=== PATIENT | male | born 1960 | race Caucasian/White ===

== ENCOUNTER 2020-01-30 21:47 | Emergency (ER) | payer OTHER, SELFPAY ==
[2020-01-30 21:48] VITALS: BP 172/124; PULSE 78; RESP 17; TEMP 36.3; O2SAT 98; BMI 30.3
--- NOTE | 2020-01-30 22:21 | CT_ITS ---
STUDY: CT ABDOMEN AND PELVIS WITHOUT CONTRAST REASON FOR EXAM: Male, 59 years old. Left lower quadrant pain for 2 hours. History of appendectomy. RADIATION DOSAGE (If Supplied By Facility): CTDIvol = ( 14.73 ) mGy, DLP = ( 846.38 ) mGycm TECHNIQUE: Transaxial images were obtained from the dome of the diaphragm to the symphysis pubis without oral contrast, and without intravenous contrast. Sagittal and coronal images were reconstructed. Individualized dose optimization techniques were used for this CT. COMPARISON: None. FINDINGS: The visualized lung bases are unremarkable. The visualized portions of the heart are within normal limits. Normal liver. Normal gallbladder and extrahepatic biliary system. Normal spleen. Normal pancreas. Normal bilateral adrenal glands. Normal right kidney. There is minimal stranding in the right perinephric fat. There is no mass or renal calculi. There is no hydronephrosis. Normal visualized right ureter. The left kidney appears mildly prominent. There is stranding of the perinephric fat. The There is a large upper pole parapelvic cyst. Mild prominence of the left ureter is the urinary bladder without filling defect. Small hiatal hernia. The stomach is otherwise unremarkable. Normal small intestine. There is mild stranding of the small bowel mesentery. Small lymph nodes. There is sigmoid diverticuli without acute inflammatory change. The proximal colon is unremarkable. There is non-visualization of the appendix. There is diffuse atherosclerotic calcification of the abdominal aorta, without a demonstrated aneurysm. Normal inferior vena cava. Normal retroperitoneum. Normal urinary bladder. Enlarged prostate. There are multiple pelvic few phleboliths is nonspecific subcentimeter pelvic lymphadenopathy. No free air or free fluid within the peritoneal cavity. Small supraumbilical hernia of omental fat. The abdominal wall is otherwise grossly normal. There are diffuse degenerative changes of the visualized lumbar spine. CT/Abdomen/Pelvis without Cont IMPRESSION: 1. Is and dating and multiple lymph nodes within the small bowel mesentery. 2. Enteric findings suggestive of panniculitis. 3. Mild stranding of the barium nephric fat without obvious acute renal abnormality. 4. Left parapelvic renal cyst. 5. Sigmoid diverticulosis. 6. Nonspecific subcentimeter pelvic lymphadenopathy. Electronically Signed: Marcio Dailey DO at 23:11 EDT Tel [phone], Service support ,
[2020-01-30] MEDS: Ondansetron 4 MG/2 ML Vial IV (22:28)
[2020-01-30] MEDS: Morphine 4 MG/ML Syringe IV ×2 (22:29→22:54)
[2020-01-30] MEDS: Ketorolac 30 MG/ML Syringe IV (22:29)
[2020-01-30] MEDS: 0.9% Normal Saline 1,000 ML 250 ML IV (22:35)
[2020-01-30 22:38] LABS: Absolute Lymphocyte Count 1.34 X10^3/uL (0.83-4.51); Basophil# 0.08 X10^3/uL; Basophil% 0.8 % (0-1); Eosinophil# 0.03 X10^3/uL; Eosinophils% 0.3 % (0-5); Hematocrit 46.5 % (40-54); Hemoglobin 14.9 g/dL (13.0-16.5); Lymphocyte # 1.34 X10^3/ul (4.0); Lymphocyte % 13.4 % (19-41); Mean Corpuscular Hgb 29.4 pg (27.0-32.0); Mean Corpuscular Volume 91.9 fL (80-94); Mean Platelet Vol. 10.1 fl (6.2-12.0); Monocyte# 0.49 X10^3/uL; Monocyte% 4.9 % (0-10); NRBC Flagged by Analyzer 0 % (0-5); Neutrophil % 80.3 % (47-70); Platelet Count 245 K/mm3 (150-450); RBC Distribution Width CV 12.6 % (11.6-14.6); RBC Distribution Width SD 42.5 fl (35.1-43.9); Red Blood Count 5.06 M/mm3 (4.6-6.2)
[2020-01-30 23:00] LABS: Anion Gap 5 (5-15); BUN 17 mg/dL (7-18); Calcium,Total 9.1 mg/dL (8.5-10.1); Chloride 107 mmol/L (98-107); Creatinine, Serum 1.21 mg/dL (0.70-1.30); EST Glomerular Filtration Rate 65 mL/min (>60); Est Glom Filt Rate - Afr Amer 79 mL/min (>60); Estimated Creatinine Clearance 72.15 ml/min; Glucose 137 mg/dL (74-106); Potassium 4.1 mmol/L (3.5-5.1); Sodium Level 139 mmol/L (136-145)
[2020-01-30 23:39] LABS: Mucous, Urine 0 SEEN /hpf (<or=2+); Red Blood Cells-Urine 0 SEEN /hpf (0-5); Squamous Epithelial Cells - UA 0 SEEN /hpf (0-5); White Blood Cells 0 SEEN /hpf (0-5)
[2020-01-30 23:42] LABS: Color, Urine Yellow (Yellow); Glucose, Dipstick Normal (Normal); Ketone-Dipstick 5 mg/dl (Negative); Leukocyte Esterase-Dipstick 25 /ul (Negative); Nitrite-Dipstick Negative (Negative); Occult Blood-Urine Negative /ul (Negative); Protein-Dipstick Negative (Negative); Urine Bilirubin Dipstick Negative (Negative); Urine Clarity Clear (Clear); Urine Urobilinogen Normal (Normal)
[2020-01-30 23:54] LABS: Calcium Oxalate Crystals Ur RARE /hpf (<or=2+)
[2020-01-30 23:55] LABS: Bacteria RARE /hpf (None Seen)
--- NOTE | 2020-01-31 00:05 | ED.DCSUM_ITS ---
History of Present Illness Chief Complaint: Abd Pain Informant: Patient Narrative: Patient presents the emergency room with a sudden onset of sharp stabbing left lower abdominal pain rating towards his testicles. He states it makes him nauseous and he cannot find a position of comfort. He is never had this before. He states he is otherwise a very healthy male.Patient denies any prior history of kidney stone or diverticulitis. He denies any bowel or bladder changes. Past Medical History - Allergies and Home Meds Allergies/Adverse Reactions: Allergies No Known Allergies Allergy (Verified 01/30/20 21:50) Primary Care Physician: Juanita Perez MD [Primary Care Provider] - Prior records reviewed: Yes Past Medical History: None Surgical History: noncontributory Lives: With Family Smoking Status: Never smoker Drugs: None Review of Systems General: Denies: Chills, Fever, Sweats Eyes: Denies: Visual changes - bilaterally, Diplopia ENT: Denies: Rhinorrhea, Sore throat Cardiovascular: Denies: Chest pain, Palpitations Respiratory: Denies: Dyspnea, Cough, Dyspnea on exertion Gastrointestinal: Reports: Abdominal pain, Nausea. Denies: Vomiting, Diarrhea, Melena, Hematochezia Genitourinary: Denies: Dysuria, Hematuria, Frequency Musculoskeletal: Denies: Back pain, Extremity Pain Skin: Denies: Rash, Wounds Neurological: Denies: Headache, Weakness, Numbness Physical Exam Vital Signs/Narrative: Vital Signs Temp Pulse Resp BP Pulse Ox 01/30/20 21:48 97.3 F L 78 17 172/124 H 98 Inital Vital Signs reviewed: Yes General: Well nourished, Well developed, No Acute Distress, - - Patient appears in a very significant amount of pain. He is holding a emesis bag and is slightly diaphoretic. Head: Normocephalic, Atraumatic Eyes: Perrl, EOMI ENT: Moist mucous membranes, No rhinorrhea Neck: Supple, Nontender Cardiovascular: Regular rate, Regular rhythm, No murmurs Respiratory: No distress, CTA bilaterally, Chest nontender Abdomen: Soft, Nontender, Nondistended, Normal bowel sounds Back: Nontender, Normal Inspection Extremities: Nontender, No edema Skin: Normal color, No rash Neurological: Alert, Oriented x3, Cranial nerves II-XII grossly intact, Normal Strength, Normal Sensation Psychological: Normal affect, Normal Mood Diagnostic/Tx/Re-eval - Medical Decision Making Patient received Toradol morphine and Zofran. He was doing pretty good but the pain returned and received additional dose of morphine and has since been resting comfortably. Repeat examination of the abdomen I do not find it to be tender as was the initial exam. White count is 10. Creatinine is normal. Urinalysis does not show any blood but does show some calcium oxalate crystals. CT of the abdomen pelvis was obtained without contrast. There is a very prominent left kidney and left peripelvic renal cyst. There is dilatation of the ureter down to the bladder but I do not see an obvious stone but there are numerous calcifications in the pelvis. Given his history and exam the calcium oxalate crystals in the dilatation of the ureter I think it is most likely a ureteral calculus. Patient is feeling better and better write for pain and nausea medicine. He will follow-up with urology but will return if worsening or concerns. ED Disposition - Plan for ED Patient: Disposition: Home or Assisted Living Diagnosis: Ureteral stone with hydronephrosis Instructions: ED Renal Stone w Colic Prescriptions: Hydrocodone Bitart/Apap 5-325 [[place] 5MG-325MG] 1 tab PO Q6H PRN PRN 3 Days #12 tab PRN Reason: Pain Prescription Printed Ketorolac [Toradol] 10 mg PO Q8H PRN #15 tab PRN Reason: pain Prescription Printed Ondansetron [Zofran Odt] 4 mg PO Q6H PRN PRN #10 tab PRN Reason: Nausea Prescription Printed Referrals: Edwin Albarado MD [STAFF PHYSICIAN] - As soon as possible
[2020-01-31 00:27] VITALS: BP 147/102; PULSE 74; RESP 17; O2SAT 98
[2020-01-31] MEDS: HYDROcodone Bitartrate/Apap 5/325 Tablet PO (00:27)
== END 2020-01-31 01:39 | disposition home or self-care (01) ==
PROVIDERS: Emergency Provider Emergency Medicine; PCP Family Medicine
DX: N13.2 Hydronephrosis with renal and ureteral calculous obstruction (principal)
CPT/HCPCS: 74176; 80048; 81001; 85025; 96361; 96374; 96375; 96376; 99285; J7030; A4216; J2405

== ENCOUNTER → 2020-02-08 16:06 | Outpatient (CLI) | payer OTHER, SELFPAY ==
[2020-01-30 21:48] VITALS: BMI 30.3
== END ==
PROVIDERS: PCP Family Medicine; Visit Provider Nurse Practitioner Adult Health
DX: N20.1 Calculus of ureter (principal)
CPT/HCPCS: 82360

== ENCOUNTER 2020-03-04 06:39 | Day surgery (SDC) | payer OTHER, SELFPAY ==
[2020-03-04 07:01] VITALS: BP 131/94; PULSE 80; RESP 16; TEMP 36.2; O2SAT 100; BMI 29.0
[2020-03-04] MEDS: Lactated Ringers 1,000 ML 100 ML IV (07:15)
--- NOTE | 2020-03-04 07:50 | H&P.OPEN ---
History of Present Illness Date of Admission: 03/04/20 The patient is a 60 year old M presents for screening colonoscopy for colon cancer. Patient has never had a previous colonoscopy. Denies any chronic abdominal pain/nausea/vomiting/reflux. Patient denies any family history of colon cancer. Patient states he has bowel movement daily denies any blood Past Medical/Surgical History - Planned Operation Planned Operative Procedure/s: colonoscopy Date of Operative Procedure: 03/04/20 Permit Signed: No S.O.S: No Is This Patient Having a Total Joint: No - Previous Hospitalizations/Surgeries HX Hospitalizations: No HX of Surgeries: appendectomy 1975. [place] teeth removed 1977 Any Problems With Anesthesia: No You/Your Family Experience Fever (Hyperthermia) With Anes: No Cholinesterase deficiency: No - Cardiovascular Hx Chest Pain within Last 2 months: No Hx of Irregular Heartbeat and/or Afib: No Hx Heart Attack: No Hx Congestive Heart Failure: No Hx Rheumatic Fever: No Hx Hypertension: No Hx Internal Defibrillator: No Hx Pacemaker: No Hx Cardiac Catheterization: No Hx Cardiac Surgery/Stents/Etc.: No Hx Stress Test: No HX Edema: No Hx Pain in Legs when Walking/Leg Cramps: No - Respiratory Chronic Cough: No HX of Shortness of Breath: No Hoarseness: No Hx Chronic Obstructive Pulmonary Disease (COPD): No Hx Asthma: No Hx Emphysema: No Hx Sleep Apnea: No Hx Oxygen Use at Home: No Hx Respiratory Tract Infection/Cold (presently): No Do You Snore Loudly (louder than talking or can be heard): Yes Do You Often Feel Tired/ Fatigued/ Sleepy Dring Daytime?: No Has Anyone Observed You Stop Breathing During Sleep?: No Result (for STOP score): Negative Hx Smoking: Yes - quit 1980, prior 1 yr hx Smoking Status: Former smoker - Gastrointestinal Hx Gastroesophageal Reflux: No Hx Gastrointestinal Disorders: No Hx Gastrointestinal Bleed: No Hx Ulcer: No Hx Hiatal Hernia: No Difficulty Chewing/Swallowing: No Recent Onset of Swallowing Problems: No Special diet followed at home: No Hx Unplanned Weight Loss of 20#: No HX Unplanned Weight Gain of 20#: No - Neurological Hx Seizures: No HX Syncope/Blackout Spells/Unconsciousness: Yes - from dehydration in the past Hx CVA/Stroke: No Hx Transient Ischemic Attacks (TIA): No Hx Multiple Sclerosis: No Hx Parkinson's Disease: No Hx Head/Neck Injury: Yes - concussion as child Hx Headaches: No Hx Back Injury/Pain: No Recent Onset of Speech Difficulty: No Restless Legs: No Does patient have nerve stimulator: No - Blood Disorder Hx Leukemia: No Bleeding Tendencies: No Hx Deep Vein Thrombosis: No Hx High Cholesterol: No Blood Transmitted Disease: No Hx Hepatitis: No Hx Cirrhosis: No Hx Anemia: No Hx Blood Disorders: No - Genitourinary Hx Renal Disease: Yes - hx stone Hx Dialysis: No - Musculoskeletal Hx Arthritis: Yes Hx Rheumatoid Arthritis: No Hx Gout: No Recent Onset of an Orthopedic Problem: No - Endocrine Hx Diabetes: No Thyroid Disease: No Hx Steroid Therapy: No - Psycho/Social Hx Substance Use: No Hx Alcohol Use: Yes - 1 glass/week Hx Anxiety: No Hx Depression: No Mental Illness: No Hx Dementia: No - Miscellaneous Hx Cancer: No Recent Exposure to Contagious Disease: No Active MRSA: No Hx of C-Diff: No Any Loose Teeth: No Allergies No Known Allergies Allergy (Verified 03/04/20 07:00) - Discharge Is Pt Admitted From a Residential, or a Senior Care: No Who Could Help: After D/C, Where Do you Plan to Go: Return Home - Physical Exam Vitals/I&O's: Vital Signs Temp Pulse Resp BP Pulse Ox 97.1 F L 80 16 131/94 H 100 03/04/20 07:01 03/04/20 07:01 03/04/20 07:01 03/04/20 07:01 03/04/20 07:01 Oxygen Delivery Method Room Air Weight: 214 lb 4.629 oz Body Mass Index (BMI) 29.0 General: Alert, Oriented x3, Cooperative, No apparent distress HEENT: Atraumatic Lungs: Normal air movement Cardiovascular: Regular rate Abdomen: Soft, Non Tender, Non-Distended Extremities: No clubbing, No cyanosis, No edema Neurological: Cranial nerves II-XII grossly intact Psych/Mental Status: Normal Affect Microbiology Past 72 Hours 03/01/20 08:40 Interface Orders SARS-CoV-2 Antigen (Rapid) - Final Current Medications Lactated Ringer's () 1,000 mls @ 100 mls/hr IV .Q10H FREYA Last Admin: 03/04/20 07:15 Dose: 100 mls/hr Documented by: Assessment/Plan 60-year-old male for screening for colon cancer Procedure Criteria Procedure Type: Elective COVID Risk Discussion: The surgeon/proceduralist and patient have discussed in detail the risk of exposure to and/or potential harm posed by the COVID-19 virus with having a surgery/procedure at this time versus the risk of delaying the surgery/procedure. It is not possible to know either the risk of delaying the surgery or procedure or chance of getting an infection with perfect accuracy, but a joint decision was made between the patient and the surgeon/proceduralist to proceed at this time with the scheduled surgery/procedure as indicated on the consent form. Surgery Risks - Colonoscopy I discussed with the patient the risks of the procedure: Yes Risks Include but are not Limited To: Risks include but are not limited to: Bleeding, perforation requiring further surgery, inability to complete colonoscopy requiring barium enema.
[2020-03-04 08:36] VITALS: BP 112/72; BP 131/94; PULSE 86; RESP 18; TEMP 36.4; O2SAT 100
--- NOTE | 2020-03-04 08:38 | OP.COLON_ITS ---
Patient Name: Jakub Ordaz Procedure Date: 03/04/2020 7:16 AM Date of : 1960 Age: 60 Procedure: Colonoscopy Indications: Screening for colorectal malignant neoplasm Providers: Eneida Plasencia MD Referring MD: Juanita Perez Medicines: Monitored Anesthesia Care Patient Profile: This is a 60 year old male. Last Colonoscopy: none. The patient's first colonoscopy is today. Complications: No immediate complications. Procedure: Pre-Anesthesia Assessment: - Prior to the procedure, a History and Physical was performed, and patient medications and allergies were reviewed. The patient's tolerance of previous anesthesia was also reviewed. The risks and benefits of the procedure and the sedation options and risks were discussed with the patient. All questions were answered, and informed consent was obtained. Prior Anticoagulants: The patient has taken no previous anticoagulant or antiplatelet agents. ASA Grade Assessment: Per anesthesia. After reviewing the risks and benefits, the patient was deemed in satisfactory condition to undergo the procedure. After I obtained informed consent, the scope was passed under direct vision. Throughout the procedure, the patient's blood pressure, pulse, and oxygen saturations were monitored continuously. The pediatric colonoscope was introduced through the anus and advanced to the cecum, identified by the ileocecal valve. The colonoscopy was technically difficult and complex due to significant looping. Successful completion of the procedure was aided by changing the patient to a supine position. The patient tolerated the procedure well. The quality of the bowel preparation was good. Scope In: 8:00:18 AM Scope Withdrawal Time 0 hours 10 minutes 51 seconds Scope Out: 8:29:29 AM Total Procedure Duration Time 0 hours 29 minutes 11 seconds Findings: The perianal and digital rectal examinations were normal. Many small and large-mouthed diverticula were found in the entire colon. The exam was otherwise without abnormality on direct and retroflexion views. Impression: - Diverticulosis in the entire examined colon. - The examination was otherwise normal on direct and retroflexion views. - No specimens collected. Recommendation: - Discharge patient to home. - High fiber diet. - Continue present medications. - Repeat colonoscopy in 10 years for screening purposes. Procedure Code(s): --- Professional --- G0121, PT, Colorectal cancer screening; colonoscopy on individual not meeting criteria for high risk Diagnosis Code(s): --- Professional --- Z12.11, Encounter for screening for malignant neoplasm of colon K57.30, Diverticulosis of large intestine without perforation or abscess without bleeding CPT copyright 2017 [employer]. All rights reserved. The codes documented in this report are preliminary and upon professional fee coder review may be revised to meet current compliance requirements. MD Eneida Kiser MD 03/04/2020 8:38:11 AM This report has been signed electronically. Number of Addenda: 0 Note Initiated On: 03/04/2020 7:16 AM
--- NOTE | 2020-03-04 08:39 | OP.CCLET_ITS ---
03/04/2020 Juanita Perez [place] [id number] [place] [address] Re : Colonoscopy procedure for Jakub Ordaz Dear Dr. Perez This procedure was performed on Wednesday, March 04, 2020. My impressions and recommendations are as follows: Impressions : - Diverticulosis in the entire examined colon. - The examination was otherwise normal on direct and retroflexion views. - No specimens collected. Recommendations : - Discharge patient to home. - High fiber diet. - Continue present medications. - Repeat colonoscopy in 10 years for screening purposes. My findings are described in the full procedure note, which is enclosed. If I can be of further assistance, please feel free to contact me at Doctor phone number(s): , Work: . Sincerely, MD Eneida Kiser MD 03/04/2020 8:38:11 AM This report has been signed electronically.
[2020-03-04 08:40] VITALS: BP 102/77; BP 131/94; PULSE 75; RESP 16; O2SAT 98
[2020-03-04 08:45] VITALS: BP 106/76; BP 131/94; PULSE 73; RESP 16; O2SAT 100
[2020-03-04 08:51] VITALS: BP 108/74; BP 131/94; PULSE 62; RESP 16; TEMP 36.1; O2SAT 100
[2020-03-04 09:15] VITALS: BP 131/94
== END 2020-03-04 09:16 | disposition home or self-care (01) ==
LOC: EN 06:43 → AC 06:43
PROVIDERS: PCP Family Medicine; Referring Provider Family Medicine; Visit Provider Surgery
PROC: 0DJD8ZZ Inspection of Lower Intestinal Tract, Via Natural or Artificial Opening Endoscopic (ICD-10-PCS; CPT 45378; principal; 2020-03-04 07:55)
DX: Z12.11 Encounter for screening for malignant neoplasm of colon (principal); K57.30 Diverticulosis of large intestine without perforation or abscess without bleeding; Z87.891 Personal history of nicotine dependence; M19.90 Unspecified osteoarthritis, unspecified site; Z20.828 Contact with and (suspected) exposure to other viral communicable diseases
CPT/HCPCS: 45378; 87426; C9803; J7120; J2405